=== PATIENT | female | born 1965 | race Caucasian/White ===

== ENCOUNTER 2020-03-18 02:16 | Outpatient (CLI) | payer BC, OTHER, SELFPAY ==
[2020-03-18 18:38] LABS: SARS-CoV-2 RNA PCR Negative
== END 2020-03-18 02:17 | disposition home or self-care (01) ==
LOC: ANHCOVIDDT 02:16
PROVIDERS: PCP Family Medicine; Visit Provider Obstetrics & Gynecology
DX: Z01.812 Encounter for preprocedural laboratory examination (principal); Z20.822 Contact with and (suspected) exposure to COVID-19
CPT/HCPCS: C9803; U0003; U0005

== ENCOUNTER 2020-03-18 10:13 | Outpatient (CLI) | payer BC, OTHER, SELFPAY ==
--- NOTE | 2020-03-18 10:35 | ECG_ITS ---
Measurements Intervals [place] Rate: 101 P: 50 OK: 179 QRS: -73 QRSD: 85 T: 58 QT: 358 QTc: 464 Interpretive Statements SINUS TACHYCARDIA LOW QRS VOLTAGE IN PRECORDIAL LEADS ANTERIOR INFARCT, AGE INDETERMINATE INFERIOR INFARCT, AGE INDETERMINATE ABNORMAL ECG Electronically Signed On 03-18-2020 12:10:24 CLIENT BUSINESS MANAGER by Lb Venegas D.O.
[2020-03-18 10:39] LABS: Basophils Percent Auto 0.8 % (0.2-1.2); Eosinophils Absolute Auto 0.1 K/mm3 (0-0.3); Eosinophils Percent Auto 2.1 % (0-4.4); Hematocrit 45.5 % (37.0-47.0); Hemoglobin 14.8 g/dL (12.0-15.0); Immature Granulocyte Absolute 0.02 K/mm3 (0.00-0.031); Immature Granulocyte Percent A 0.4 % (0-0.5); Lymphocytes Absolute Auto 1.23 K/mm3 (0.9-3.2); Lymphocytes Percent Auto 25.3 % (18.3-44.2); Mean Corpuscular HGB Conc 32.5 g/dl (32-36); Mean Corpuscular Hemoglobin 30.3 pg (26-34); Mean Corpuscular Volume 93.2 fl (80-100); Mean Platelet Volume 11.8 fl (7.4-10.4); Monocytes Absolute Auto 0.3 K/mm3 (0.1-0.6); Monocytes Percent Auto 5.1 % (2.6-8.5); Neutrophils Absolute Auto 3.2 K/mm3 (1.3-6.7); Neutrophils Percent Auto 66.3 % (45.5-73.1); Platelet Count Result 196 k/mm3 (150-375); Red Blood Count 4.88 M/mm3 (4.2-5.4); Red Cell Distribution Width 12.5 % (11.5-14.5); White Blood Count 4.9 K/mm3 (4.5-10.0)
[2020-03-18 10:51] LABS: Anion Gap 7 mmol/L (8-16); Blood Urea Nitrogen 19 mg/dL (7-17); Calcium 9.3 mg/dL (8.4-10.2); Carbon Dioxide 30 mmol/L (22-30); Chloride 101 mmol/L (98-107); Estimated Glomerular Filt Rate > 60; Glucose 284 mg/dL (65-105); Potassium 4.4 mmol/L (3.4-5.0); Sodium 138 mmol/L (137-145)
== END 2020-03-18 10:14 | disposition home or self-care (01) ==
LOC: ANHLAB 10:15
PROVIDERS: Anesthesiology; PCP Family Medicine; Visit Provider Obstetrics & Gynecology
DX: N85.2 Hypertrophy of uterus (principal); E11.9 Type 2 diabetes mellitus without complications; I10 Essential (primary) hypertension; Z01.818 Encounter for other preprocedural examination; R94.31 Abnormal electrocardiogram [ECG] [EKG]
CPT/HCPCS: 36415; 80048; 85025; 86850; 86900; 86901; 93005

== ENCOUNTER 2020-03-21 00:43 | Day surgery (SDC) | payer BC, OTHER, SELFPAY ==
[2020-03-17 10:57] VITALS: BMI 33.7
--- NOTE | 2020-03-18 11:03 | P.HP_ITS ---
H&P: HPI History of Present Illness Date/Time: 03/18/20 11:03 Chief Complaint: pain Narrative: Ghazal Greene is a 54 year old female 0 is admitted for robotic hysterectomy and bilateral salpingo-oopho rectomy. She has chronic and severe pelvic pain and enlarged uterus and abnormal Paps. Risks and benefits of this procedure reviewed including muscles were , aspiration pneumonia, bleeding, transfusion, perforation under to bowel, bladder, ureters, or other internal organs with need for laparotomy. Risk understanding. She had all questions answered. She asked to proceed Review of Systems Review of Systems: All systems reviewed & are unremarkable except as noted in HPI and below PMFSH Social History Social History Smoking status: Never smoker Second hand tobacco smoke exposure: No Alcohol intake: never Substance use: never Substance use type: does not use Spiritual care concerns: No Meds Home Medications and Allergies Home Medications Medication Instructions Recorded Confirmed Type amitriptyline 100 mg PO HS 03/17/20 03/17/20 History amlodipine [Norvasc] 5 mg PO DAILY 03/17/20 03/17/20 History atorvastatin 20 mg PO HS 03/17/20 03/17/20 History conj estrog-medroxyprogest abel 1 tablet HS 03/17/20 03/17/20 History [Prempro] dapagliflozin [Farxiga] 10 mg PO DAILY 03/17/20 03/17/20 History dulaglutide [Trulicity] 0.75 mg SUBCUT WEEKLY 03/17/20 03/17/20 History galcanezumab-gnlm [Emgality Pen] 120 mg SUBCUT MONTHLY 03/17/20 03/17/20 History levocetirizine 5 mg PO HS 03/17/20 03/17/20 History lisinopril 40 mg PO HS 03/17/20 03/17/20 History metformin 1,000 mg PO BID 03/17/20 03/17/20 History montelukast 10 mg PO HS 03/17/20 03/17/20 History Allergies Allergy/AdvReac Type Severity Reaction Status Date / Time ANTI-INFLAMMATORIES AdvReac Severe Anaphylactic Uncoded 03/17/20 10:48 Shock Exam Const: General: no acute distress Eyes: General: appearance normal, both eyes and all related structures Neck: Neck: supple and no JVD Thyroid: thyroid normal Resp: Effort & Inspection: normal respiratory effort Auscultation: clear to auscultation bilaterally Cardio: Rate: regular rate Rhythm: regular rhythm GI: Inspection: non-distended GI Palp: Yes Soft to palpation, No Tenderness to palpation present (GI) and No Guarding due to palpation present (GI) Auscultation: normal bowel sounds : General: Yes bladder normal to inspection External Female Exam: normal external appearance Speculum Exam - Vagina: normal appearance of the vagina Speculum Exam - Cervix: normal appearance of the cervix Bimanual exam- vagina & uterus: enlarged Bimanual Exam- Adnexa, other: no masses Skin: General skin exam: no rashes or lesions noted Extrem: General: normal to inspection and no edema Psych: Mental Status: mental status grossly normal Affect: normal affect Assessment and Plan Additional Plan impression: Enlarged uterus and pelvic pain with a history of abnormal Pap Plan: Robotic total vaginal hysterectomy and bilateral salpingo-oophorectomy
[2020-03-21] VITALS (16 sets, daily range): BP systolic 120–152; BP diastolic 57–87; PULSE 70–109; RESP 12–20; TEMP 36.3–37.5; O2SAT 92–100; BMI 33.3
--- NOTE | 2020-03-21 06:25 | WPDHPUPDATE1 ---
History and Physical Update Update Date/Time: 03/21/20 06:25 History and Physical has been reviewed, including an updated exam of the patient. There are NO changes in the patient's condition. Risks, benefits, and alternatives have been discussed and questions answered. Patient agrees to proceed with procedure.
[2020-03-21] MEDS: ACETAMINOPHEN 500 MG TABLET 1000 MG PO (06:35)
[2020-03-21 06:59] LABS: Glucose Point of Care 215 (65-105)
--- NOTE | 2020-03-21 07:09 | P.PNAN_ITS ---
Anes - Initial Pre Proc Eval Procedure: Operation Date: 03/21/20 07:30 Proposed Procedures p Robotic Assisted Total Vaginal Hysterectomy With Bilateral Salpingo- Oophorectomy - Lazaro Chen MD Date/Time: 03/21/20 07:09 Surgeon: Lazaro Chen MD Pre Op Diagnosis: Enlarged Uterus, Pelvic Pain, Abnormal pap Patient Data Age: 54 Gender: F Height: 5 ft 7 in Weight: 96.35 kg Last Vital Signs Temp 99.3 F 03/21/20 06:05 Pulse 109 H 03/21/20 06:05 Resp 20 03/21/20 06:05 BP 137/82 03/21/20 06:05 Pulse Ox 97 03/21/20 06:05 Allergies Allergy/AdvReac Type Severity Reaction Status Date / Time ANTI-INFLAMMATORIES Allergy Severe Anaphylactic Uncoded 03/21/20 06:26 Shock Home Medications Medication Instructions Recorded Confirmed Type amitriptyline 100 mg PO HS 03/17/20 03/21/20 History amlodipine [Norvasc] 5 mg PO DAILY 03/17/20 03/21/20 History atorvastatin 20 mg PO HS 03/17/20 03/21/20 History conj estrog-medroxyprogest abel 1 tablet HS 03/17/20 03/21/20 History [Prempro] dapagliflozin [Farxiga] 10 mg PO DAILY 03/17/20 03/21/20 History dulaglutide [Trulicity] 0.75 mg SUBCUT WEEKLY 03/17/20 03/21/20 History galcanezumab-gnlm [Emgality Pen] 120 mg SUBCUT MONTHLY 03/17/20 03/21/20 History levocetirizine 5 mg PO HS 03/17/20 03/21/20 History lisinopril 40 mg PO HS 03/17/20 03/21/20 History metformin 1,000 mg PO BID 03/17/20 03/21/20 History montelukast 10 mg PO HS 03/17/20 03/21/20 History hydrocodone-acetaminophen [[place]] 1 tablet PO Q4H PRN #30 tablet 03/21/20 Rx Laboratory Tests 03/21/20 06:39 POC Capillary Glucose 215 mg/dl H mg/dl (65-105) Patient hx anesthesia problems: none Family hx anesthesia problems: none PMFSH Past Medical History Medical History (Updated 03/21/20 @ 07:09 by Pato Russo MD) Asthma Diabetes Hyperlipidemia Hypertension Social History Social History Smoking status: Never smoker Second hand tobacco smoke exposure: No Alcohol intake: never Substance use: never Substance use type: does not use Living arrangements: with family Spiritual care concerns: No Anes - Eval Final PreProcedure Day of Procedure 03/21/20 07:09 Patient weight: obese Heart: regular rate and rhythm Lungs: clear to auscultation Airway: Mallampati scale class III Neurological: alert and oriented Last oral intake: >/= 8 hours ASA classification: III Emergent: no Anesthetic plan: proceed Anesthesia type and monitoring: general ETT and standard monitoring Informed Consent: The patient's anesthetic plan and its attendant risks and benefits were discussed with the patient/family/POA. Questions were solicited and answers provided to the satisfaction of the patient/family/POA.
[2020-03-21] MEDS: LACTATED RINGERS 1,000 ML 30 ML IV CONT ×2 (07:17→08:26)
[2020-03-21] MEDS: ceFAZolin 2 GM/D5W 50 ML 2 GM/50 ML BAG IVPB (07:23)
--- NOTE | 2020-03-21 08:20 | P.OP_ITS ---
Procedure Note - Detailed Date of procedure: 03/21/20 Pre-op diagnosis: Enlarged Uterus, Pelvic Pain, Abnormal pap Surgeon: Lazaro Chen MD Postop diagnosis: Pelvic pain/abnormal Paps/enlarged uterus Procedure: Robotic total vaginal hysterectomy and bilateral salpingo- oophorectomy EBL: 20cc Anesthesia: General endotracheal Complications: None Findings: A mildly enlarged uterus. The left ovary was adherent to the pelvic sidewall. Description of procedure.: The patient was prepped draped in the normal sterile fashion and placed in the dorsal lithotomy position. Under excellent general endotracheal anesthesia weighted speculum was placed in posterior fornix of vagina. The anterior lip of the cervix grasped with a single-tooth tenaculum and the uterus sounded to8.5cm. Serial dilatation with fragmented dilators performed followed by passes the 8. JOSE LUIS and the 3. Cold cup. Sixteen Frisian catheter was placed in the bladder. The remainder the instruments in the vagina were removed. The gloves were changed. A supraumbilical incision made in the Veress needle passed in the abdomen. The abdomen filled with CO2 gas [id number]. The 8mm trocar advanced in the abdomen. The scope placed and the downside visualized with no injury seen. The patient placed in Trendelenburg and right and left lateral quadrant incision made. The 8mm trocars advanced under direct visualization assuring no injury. A right upper quadrant incision made in the 8mm trocar advanced under direct visualiz ation assuring no injury. The robot was docked. Attention was turned to the console. The left round ligament was grasped, burned, cut. Anterior bladder flap was formed by sharply dissecting with the monopolar scissors to the opposite round ligament was clamped, burned, cut. Next the left infundibulopelvic structure was skeletonized. Initially there was some adherence from the ovary into the ovarian fossa but this was easily removed. The infundibulopelvic structure was clamped, burned, cut and brought to the level of the previously cut round ligament. In like fashion to remove the right ovary and tube the infundibulopelvic structure was skeletonized. This was clamped, burned, cut and brought to the level previously cut round ligament. Next the cardinal and broad ligaments on the left were serially skeletonized down the lateral edge of the uterus these were clamped, burned, cut into the uterine vessels could be seen. These were large tortuous in each was individually clamped, burned, cut. In like fashion the cardinal and broad ligaments on the right were serially skeletonized and brought down the lateral edge of the cervix and uterus were clamped, burned, cut until the uterine vessels could be seen on the right these were individually clamped, burned, cut. Blanching the uterus was noted a colpotomy incision was made in the cervix uterus ovaries and tubes removed through the vagina. Blood loss was estimated 20cc. The vagina was closed with continuous running 0V lock from lateral edge to lateral edge back to the midline. Irrigation undertaken and hemostasis was noted. The robot was undocked. The gas removed from the abdomen. The trocars removed and the incisions closed with 4 Monocryl glue. The patient was awakened. She went to recovery in satisfactory condition. All sponge, needle, instrument counts were correct. There were no immediate complications
[2020-03-21 08:41] LABS: Glucose Point of Care 226 (65-105)
[2020-03-21] MEDS: fentaNYL CITRATE INJ (*CRX) 100 MCG/2 ML VIAL 25 MCG IV PUSH ×4 (09:12→09:32)
--- NOTE | 2020-03-21 09:55 | PC.NURSE ---
This patient, Ghazal Greene, was received from on 03/21/20 at 0955. Patient/family oriented to unit policies and routines
[2020-03-21] MEDS: DEXTROSE 5%/LACTATED RINGERS 1,000 ML 125 ML IV CONT (10:21)
[2020-03-21] MEDS: MORPHINE SULFATE (*CRX) 4 MG/ML INJ IV PUSH (11:00)
[2020-03-21] MEDS: AMITRIPTYLINE HCL 25 MG TABLET 100 MG PO (19:05)
[2020-03-21] MEDS: HYDROcodone/acetaminophen (*CRX) 5-325 MG TABLET 1 TAB PO (19:06)
[2020-03-21] MEDS: ATORVASTATIN 20 MG TABLET PO (19:07)
[2020-03-21] MEDS: MONTELUKAST SODIUM 10 MG TABLET PO (19:07)
[2020-03-21] MEDS: metFORMIN HCL 500 MG TABLET 1000 MG PO (19:08)
[2020-03-21] MEDS: lisinopriL 20 MG TABLET 40 MG PO (19:09)
[2020-03-21] MEDS: SIMETHICONE 80 MG TAB.CHEW PO (19:11)
[2020-03-22 01:10] VITALS: BP 104/56; PULSE 90; RESP 14; TEMP 36.8
[2020-03-22 05:31] VITALS: BP 114/52; PULSE 85; RESP 17; TEMP 36.9
[2020-03-22 05:52] LABS: Basophils Percent Auto 0.4 % (0.2-1.2); Eosinophils Absolute Auto 0.1 K/mm3 (0-0.3); Eosinophils Percent Auto 1.5 % (0-4.4); Hematocrit 43.2 % (37.0-47.0); Hemoglobin 14.1 g/dL (12.0-15.0); Immature Granulocyte Absolute 0.01 K/mm3 (0.00-0.031); Immature Granulocyte Percent A 0.2 % (0-0.5); Lymphocytes Absolute Auto 1.38 K/mm3 (0.9-3.2); Lymphocytes Percent Auto 25.3 % (18.3-44.2); Mean Corpuscular HGB Conc 32.6 g/dl (32-36); Mean Corpuscular Hemoglobin 29.7 pg (26-34); Mean Corpuscular Volume 90.9 fl (80-100); Mean Platelet Volume 12.1 fl (7.4-10.4); Monocytes Absolute Auto 0.4 K/mm3 (0.1-0.6); Monocytes Percent Auto 6.6 % (2.6-8.5); Neutrophils Absolute Auto 3.6 K/mm3 (1.3-6.7); Platelet Count Result 185 k/mm3 (150-375); Red Blood Count 4.75 M/mm3 (4.2-5.4); Red Cell Distribution Width 12.5 % (11.5-14.5); White Blood Count 5.5 K/mm3 (4.5-10.0)
[2020-03-22 07:45] VITALS: BP 113/70; PULSE 100; RESP 18; TEMP 37.2; O2SAT 98
[2020-03-22] MEDS: DOCUSATE SODIUM 100 MG CAPSULE PO (08:07)
[2020-03-22] MEDS: HYDROcodone/acetaminophen (*CRX) 5-325 MG TABLET 1 TAB PO (08:07)
[2020-03-22] MEDS: ENOXAPARIN 40 MG/0.4 ML SYRINGE SUB-Q (08:07)
[2020-03-22] MEDS: SIMETHICONE 80 MG TAB.CHEW PO (08:13)
--- NOTE | 2020-03-22 09:20 | PC.NURSE ---
Pt. took own medications from home this am.
--- NOTE | 2020-03-22 09:54 | P.PNAN_ITS ---
Anes - Prog Note Post-Op Date/Time: 03/22/20 09:54 Cardiovascular status: normal Respiratory status: normal Airway patency: baseline Mental status: baseline Post-Op hydration status: normal Vital Signs: Last Vital Signs Temp 37.2 C 03/22/20 07:45 Pulse 100 03/22/20 07:45 Resp 18 03/22/20 07:45 BP 113/70 03/22/20 07:45 Pulse Ox 98 03/22/20 07:45 Pain Score (VAS): 03/09 I/O: Intake & Output 03/21/20 03/22/20 03/22/20 23:59 07:59 15:59 Intake Total 1000 700 Output Total 1000 1650 Balance 0 -950 Laboratory Tests 03/22/20 05:39 03/22/20 05:39 WBC 5.5 RBC 4.75 Hgb 14.1 Hct 43.2 MCV 90.9 MCH 29.7 MCHC 32.6 RDW 12.5 Plt Count 185 MPV 12.1 H Immature Gran % (Auto) 0.2 Neut % (Auto) 66.0 Lymph % (Auto) 25.3 [place] % (Auto) 6.6 Eos % (Auto) 1.5 Baso % (Auto) 0.4 Lymph # (Auto) 1.38 [place] # (Auto) 0.4 Eos # (Auto) 0.1 Baso # (Auto) 0.0 Abs Immat Gran (auto) 0.01 Absolute Neuts (auto) 3.6 Absolute Nucleated RBC 0.0 Nucleated RBC % 0.0 Post-procedural complaints: none Patient Feedback: Patient satisfied with anesthetic care.
--- NOTE | 2020-03-22 09:58 | PM.GYNPNOP ---
GROUND INSTRUCTOR ADVANCED - A/P Postoperative Procedures: Procedures Operation Date: 03/21/20 07:30 Actual Procedures Side Surgeon p Robotic Assisted Total Vaginal Hysterectomy With Bilateral Salpingo-Oophorectomy Lazaro Chen MD A: POD#1, doing well. P: Home to f/u 2 weeks. Time Spent With Patient Time with patient: less than 15 minutes GROUND INSTRUCTOR ADVANCED- PN:Subj Post-Op Subjective Date/time seen: 03/22/20 09:58 Exam Narrative: Exam Narrative: AVSS I/O OK ABD soft, nontender, fundus firm. Incision c/d/i. EXT nontender GROUND INSTRUCTOR ADVANCED - PN: Obj Data Vital Signs Vital Signs: Vital Signs - 24 hr 03/21/20 10:00 03/21/20 10:15 03/21/20 10:30 Temperature 36.6 C Pulse Rate 85 87 82 Respiratory Rate 16 16 16 Blood Pressure 127/75 135/75 137/79 Pulse Oximetry 95 98 92 03/21/20 11:00 03/21/20 12:00 03/21/20 13:00 Temperature 37.5 C Pulse Rate 89 94 95 Respiratory Rate 16 16 16 Blood Pressure 140/80 139/87 125/75 Pulse Oximetry 96 96 95 03/21/20 14:00 03/21/20 16:15 03/21/20 19:00 Temperature 36.6 C 37.0 C 37.1 C Pulse Rate 103 H 98 105 H Respiratory Rate 16 16 17 Blood Pressure 125/75 127/71 127/68 Pulse Oximetry 96 94 03/22/20 01:10 03/22/20 05:31 03/22/20 07:45 Temperature 36.8 C 36.9 C 37.2 C Pulse Rate 90 85 100 Respiratory Rate 14 17 18 Blood Pressure 104/56 L 114/52 L 113/70 Pulse Oximetry 98 Intake/Output Intake/Output: Intake & Output 03/19/20 03/20/20 03/21/20 03/22/20 23:59 23:59 23:59 23:59 Intake Total 1650 700 Output Total 2470 1650 Balance -820 -950 Meds/Results Medications: Active Medications Generic Name Dose Route Start Last Admin Trade Name Freq PRN Reason Stop Dose Admin Hydrocodone Bitart/Acetaminophen 1 tab 03/21/20 09:52 03/22/20 08:07 Hydrocodone/Acetaminophen (*Crx) 5-325 Mg Tablet PO 1 tab Q3H PRN Administration Pain Rated 5 or Less Hydrocodone Bitart/Acetaminophen 1 tab 03/21/20 09:52 Hydrocodone/Acetaminophen (*Crx) 10-325 Mg Tablet PO Q3H PRN Pain Rated 6 or Greater Amitriptyline HCl 100 mg 03/21/20 21:00 03/21/20 19:05 Amitriptyline Hcl 25 Mg Tablet PO 100 mg HS COMFORT Administration Amlodipine Besylate 5 mg 03/22/20 09:00 03/22/20 08:08 Amlodipine Besylate 5 Mg Tablet PO Not Given DAILY COMFORT Atorvastatin Calcium 20 mg 03/21/20 21:00 03/21/20 19:07 Atorvastatin 20 Mg Tablet PO 20 mg HS COMFORT Administration Docusate Sodium 100 mg 03/21/20 09:52 03/22/20 08:07 Docusate Sodium 100 Mg Capsule PO 100 mg BID COMFORT Administration Enoxaparin Sodium 40 mg 03/21/20 09:52 03/22/20 08:07 Enoxaparin 40 Mg/0.4 Ml Syringe SUB-Q 40 mg DAILY COMFORT Administration Lisinopril 40 mg 03/21/20 21:00 03/21/20 19:09 Lisinopril 20 Mg Tablet PO 20 mg HS COMFORT Administration Metformin HCl 1,000 mg 03/21/20 17:00 03/22/20 08:08 Metformin Hcl 500 Mg Tablet PO Not Given BIDWM COMFORT Montelukast Sodium 10 mg 03/21/20 21:00 03/21/20 19:07 Montelukast Sodium 10 Mg Tablet PO 10 mg HS COMFORT Administration Simethicone 80 mg 03/21/20 09:52 03/22/20 08:13 Simethicone 80 Mg Tab.Chew PO 80 mg Q2H PRN Administration Gas Labs CBC & Chem 7: 03/22/20 05:39 Labs: Laboratory Results - last 24 hr 03/22/20 05:39 WBC 5.5 RBC 4.75 Hgb 14.1 Hct 43.2 MCV 90.9 MCH 29.7 MCHC 32.6 RDW 12.5 Plt Count 185 MPV 12.1 H Immature Gran % (Auto) 0.2 Neut % (Auto) 66.0 Lymph % (Auto) 25.3 [place] % (Auto) 6.6 Eos % (Auto) 1.5 Baso % (Auto) 0.4 Lymph # (Auto) 1.38 [place] # (Auto) 0.4 Eos # (Auto) 0.1 Baso # (Auto) 0.0 Abs Immat Gran (auto) 0.01 Absolute Neuts (auto) 3.6 Absolute Nucleated RBC 0.0 Nucleated RBC % 0.0
== END 2020-03-22 10:45 | disposition home or self-care (01) ==
LOC: ANHSURGERY 05:53 → ANHOB2 09:54
PROVIDERS: PCP Family Medicine; Visit Provider Obstetrics & Gynecology
PROC: (CPT 58552; principal; 2020-03-21 07:30)
DX: R10.2 Pelvic and perineal pain (principal); D25.1 Intramural leiomyoma of uterus; N73.6 Female pelvic peritoneal adhesions (postinfective); N85.8 Other specified noninflammatory disorders of uterus; I10 Essential (primary) hypertension; E78.5 Hyperlipidemia, unspecified; E11.9 Type 2 diabetes mellitus without complications; J45.909 Unspecified asthma, uncomplicated; Z79.84 Long term (current) use of oral hypoglycemic drugs; E66.9 Obesity, unspecified; Z68.33 Body mass index [BMI] 33.0-33.9, adult
CPT/HCPCS: 58552; S2900; 36415; 85025; 88307; 99199; A9270; J0330; J0690; J1650; J2250; J2270; J2405; J2704; J3010; J7030; J7120; J7121

== ENCOUNTER → 2020-03-26 15:01 | Outpatient (CLI) | payer BC, OTHER, SELFPAY ==
--- NOTE | ~2020-03-26 | MM_ITS ---
EXAMINATION: MM screening mary BI w jp HISTORY: Screening TECHNIQUE: Craniocaudal and mediolateral oblique 3-D tomosynthesis images were obtained and synthetic 2-D images were generated. CAD analysis was submitted and interpreted. COMPARISON: Comparison to multiple prior studies sequentially, with oldest reviewed study dated 06/2012. BREAST PARENCHYMAL COMPOSITION: The breasts are heterogenously dense, which may obscure small masses. FINDINGS: There is focal asymmetry superiorly in the right breast on MLO view which appears new. Ther e are new clustered calcifications lower central aspect of the left breast posteriorly. IMPRESSION: 1. New focal right breast asymmetry superiorly on MLO view. New cluster of calcifications lower centr al aspect of the left breast. 2. Additional mammographic views and possible breast ultrasound are recommended. BI-RADS Category 0: Incomplete: Needs additional imaging evaluation. Reviewed, dictated and finalized at location A. GE SAW OPERATOR IMPRESSION: 1. New focal right breast asymmetry superiorly on MLO view. New cluster of calc ifications lower central aspect of the left breast. 2. Additional mammographic views and possible breast ultrasound are recommended . BI-RADS Category 0: Incomplete: Needs additional imaging evaluation.
== END ==
PROVIDERS: PCP Family Medicine; Visit Provider Obstetrics & Gynecology
DX: Z12.31 Encounter for screening mammogram for malignant neoplasm of breast (principal); R92.8 Other abnormal and inconclusive findings on diagnostic imaging of breast
CPT/HCPCS: 77063; 77067

== ENCOUNTER → 2020-07-22 14:14 | Outpatient (CLI) | payer BC, OTHER, SELFPAY ==
--- NOTE | ~2020-07-22 | MMUS_ITS ---
EXAMINATION: MM diagnostic mary BI w jp, US breast BI complete HISTORY: Focal asymmetry in superior right breast on screening MLO view of 03/26/2020 and new clustere d calcifications in the lower central aspect of the left breast posteriorly TECHNIQUE: Additional 3-D tomosynthesis images of both breasts were performed and synthetic 2-D image s were generated. Magnification views of left breast. CAD analysis was submitted and interpreted. Hig h resolution bilateral complete breast ultrasound was performed. COMPARISON: 03/26/2020 bilateral digital screening mammogram FINDINGS: MAMMOGRAPHIC FINDINGS: A cluster of grouped irregular granular appearing microcalcifications is present in the posterior alycia tral left breast approximately 6:00 position. These are suspicious. Stereotactic biopsy is recommende d. No suspicious mass or architectural distortion of either breast is evident at the dense heterogeneous stroma may obscure masses on either side. Bilateral complete breast ultrasound examination was perfo rmed. ULTRASOUND: Right breast: 2:00 13 mm from nipple: At the area of palpable abnormality there is an approximately 1.5 mm subcutan eous hypoechoic area which may be a small sebaceous cyst. No suspicious mass or shadowing of the right breast is detected. Left breast: 10:00 11 cm from the nipple, at area of palpable abnormality: 3.1 x 3.4 mm hypoechoic lesion with thr ough transmission posterior enhancement in the subcutaneous tissues, with associated skin tract, cons istent with sebaceous cyst. No suspicious mass or shadowing of the left breast is detected. IMPRESSION: Cluster of grouped irregular granular microcalcifications in the posterior lower mid left breast; keisha reotactic biopsy is recommended BI-RADS category 4, suspicious findings. Dr. Gaston telephoned the report and left breast stereotactic biopsy recommendation on 07/22/2020 to [facility], Dr. Toya Banegas's [place] Reporter at 1607 hours. Reviewed, dictated and finalized at location A. IMPRESSION: Cluster of grouped irregular granular microcalcifications in the posterior lowe r mid left breast; stereotactic biopsy is recommended BI-RADS category 4, suspicious findings. Dr. Gaston telephoned the report and left breast stereotactic biopsy recommendati on on 07/22/2020 to [facility], Dr. Toya Banegas's [place] Reporter at 1607 hours. IMPRESSION: Cluster of grouped irregular granular microcalcifications in the posterior lowe r mid left breast; stereotactic biopsy is recommended BI-RADS category 4, suspicious findings. Dr. Gaston telephoned the report and left breast stereotactic biopsy recommendati on on 07/22/2020 to [facility], Dr. Toya Banegsa's [place] Reporter at 1607 hours.
== END ==
PROVIDERS: Visit Provider Obstetrics & Gynecology
DX: R92.8 Other abnormal and inconclusive findings on diagnostic imaging of breast (principal)
CPT/HCPCS: 76641; 77062; 77066; G0279